=== PATIENT | male | born 1950 | race Two or more races ===

== ENCOUNTER 2017-04-08 08:02 | Day surgery (SDC) | payer OTHER ==
[2017-04-05 15:54] LABS: Basophils # (auto) 0.1 uL; Basophils % (auto) 0.8 % (0.0-2.0); Eosinophils # (auto) 0.4 uL; Eosinophils % (auto) 3.9 % (0.0-7.0); Hematocrit 46.7 % (41.0-53.0); Hemoglobin 15.8 g/dL (13.5-17.5); Lymphocytes # (auto) 2.6 uL; Lymphocytes % (auto) 29.2 % (10.0-50.0); Mean Corpuscular Hemoglobin 30.9 pg (28.0-32.0); Mean Corpuscular Hgb Conc. 33.8 g/dL (32.0-36.0); Mean Corpuscular Volume 91.3 fL (80.0-100.0); Mean Platelet Volume 9.6 fL (7.4-10.4); Monocytes # (auto) 0.7 uL; Neutrophils # (auto) 5.2 uL; Neutrophils % (auto) 58.1 % (37.0-80.0); Platelet Count (auto) 250 10^3/uL (140-450); Red Cell Distribution Width 13.3 % (11.6-16.0); White Blood Cell 8.9 10^3/uL (4.4-10.8)
[2017-04-05 16:15] LABS: INR 1.05 (0.9-1.15); Partial Thromboplastin Time 31.6 sec (22.64-33.71); Prothrombin Time 11.4 sec (9.37-12.3)
[~2017-04-08] VITALS: Ht 167.6 cm; Wt 88.0 kg
[~2017-04-08 08:02] MED LIST: ALPR1TAB2 PO; ASPI81TA27 PO; CITA20TA3 PO; DONE10TA37 PO; GLIP-116 PO; IBUP800T24 PO; PANT40TA2 PO; SITA100T7 PO
[2017-04-08] MEDS ORDERED: SODIUM CHLORIDE LOCK 10 ML ONE (08:16)
[2017-04-08] MEDS ORDERED: LIDOCAINE VISCOUS 2% 15ML UD ONE (08:16)
[2017-04-08] MEDS ORDERED: NALOXONE HCL 0.4 MG/ML VIAL ONE (08:16)
[2017-04-08] MEDS ORDERED: FLUMAZENIL 0.1 MG/ML INJ 10ML MDV IV ONE (08:16)
[2017-04-08] MEDS ORDERED: diphenhdrAMINE HCL 50 MG/1 ML VL ONE (08:17)
[2017-04-08] MEDS: MIDAZOLAM HCL 5 MG/ML-1ML VIAL ONE ×2 (08:50→08:54)
[2017-04-08] MEDS: fentaNYL CITRATE 100 MCG/2 ML VL ONE ×2 (08:50→08:54)
[2017-04-08 09:32] VITALS: BP 130/75
== END 2017-04-08 09:42 | disposition home or self-care (01) ==
LOC: GI 08:02
PROVIDERS: ATTEND Internal Medicine Gastroenterology
DX: K29.50 Unspecified chronic gastritis without bleeding (principal); K29.80 Duodenitis without bleeding; J45.909 Unspecified asthma, uncomplicated; E11.9 Type 2 diabetes mellitus without complications; Z90.49 Acquired absence of other specified parts of digestive tract
CPT/HCPCS: 36415; 43239; 82962; 85025; 85610; 85730; 88305; 88313; 88342; J1200; J2250; J3010; J7030

== ENCOUNTER → 2017-05-07 | Outpatient (CLI) | payer OTHER | END | disposition home or self-care (01) | LOC: LAB 10:29 | PROVIDERS: ATTEND Internal Medicine Gastroenterology | DX: Z12.11 Encounter for screening for malignant neoplasm of colon (principal) | CPT/HCPCS: 82270 ==

== ENCOUNTER → 2017-05-31 | Outpatient (CLI) | payer OTHER ==
[2017-05-31 07:42] LABS: Urine Bilirubin Negative (Negative); Urine Blood TRACE /uL (Negative); Urine Color Yellow (Yellow); Urine Glucose TRACE mg/dL (Normal); Urine Ketone Negative (Negative); Urine Mucus FEW (None Seen); Urine Nitrite Negative (Negative); Urine RBC 5 /hpf (0 - 3); Urine Squamous Epithelial Cell FEW /hpf (<5); Urine Urobilinogen Normal (Negative)
[2017-05-31 08:01] LABS: Albumin 3.9 g/dL (3.4-5.0); BUN/Creatinine Ratio 10.4; Bilirubin, Total 0.3 mg/dL (0.2-1.0); Calcium 8.8 mg/dL (8.5-10.1); Potassium 4.1 mmol/L (3.5-5.1)
== END | disposition home or self-care (01) ==
LOC: LAB 07:15
PROVIDERS: ATTEND Nurse Practitioner
DX: E11.21 Type 2 diabetes mellitus with diabetic nephropathy (principal)
CPT/HCPCS: 36415; 80053; 80061; 81001; 82043; 82306; 82607; 83036; 84443

== ENCOUNTER → 2018-05-05 | Outpatient (CLI) | payer OTHER ==
[~2018-05-05] MED LIST changes: -DONE10TA37 PO; +DONE10TA40 PO
[2018-05-05 10:29] LABS: Basophils # (auto) 0.1 uL; Basophils % (auto) 1.4 % (0.0-2.0); Eosinophils # (auto) 0.2 uL; Eosinophils % (auto) 2.6 % (0.0-7.0); Hematocrit 43.8 % (41.0-53.0); Hemoglobin 14.9 g/dL (13.5-17.5); Lymphocytes # (auto) 1.2 uL; Lymphocytes % (auto) 16.9 % (10.0-50.0); Mean Corpuscular Hemoglobin 30.7 pg (28.0-32.0); Mean Corpuscular Volume 90.4 fL (80.0-100.0); Monocytes # (auto) 0.5 uL; Monocytes % (auto) 6.4 % (0.0-12.0); Neutrophils # (auto) 5.2 uL; Neutrophils % (auto) 72.7 % (37.0-80.0); Nucleated Red Blood Cells % 0.1 %; Platelet Count (auto) 178 10^3/uL (140-450); Red Blood Cells 4.85 10^6/uL (4.5-5.90); Red Cell Distribution Width 13.8 % (11.8-14.3); White Blood Cell 7.1 10^3/uL (4.4-10.8)
[2018-05-05 10:34] LABS: Urine Bacteria NONE SEEN /hpf (None Seen); Urine Blood Negative /uL (Negative); Urine Mucus FEW (None Seen); Urine Specific Gravity 1.022 (1.001-1.035); Urine WBC 1 /hpf (0 - 3)
[2018-05-05 10:55] LABS: Albumin 3.9 g/dL (3.4-5.0); BUN/Creatinine Ratio 8.9; Bilirubin, Total 0.5 mg/dL (0.2-1.0); Calcium 8.5 mg/dL (8.5-10.1); Potassium 4.1 mmol/L (3.5-5.1); Total Protein 7.6 g/dL (6.4-8.2)
== END | disposition home or self-care (01) ==
LOC: LAB 10:07
PROVIDERS: ATTEND Nurse Practitioner
DX: E11.21 Type 2 diabetes mellitus with diabetic nephropathy (principal); E78.5 Hyperlipidemia, unspecified; E78.00 Pure hypercholesterolemia, unspecified; F41.9 Anxiety disorder, unspecified
CPT/HCPCS: 36415; 80053; 80061; 81001; 82043; 83036; 85025

== ENCOUNTER → 2018-07-01 | Outpatient (CLI) | payer OTHER | END | disposition home or self-care (01) | LOC: LAB 11:59 | PROVIDERS: ATTEND Internal Medicine Gastroenterology | DX: Z12.11 Encounter for screening for malignant neoplasm of colon (principal); K22.70 Barrett's esophagus without dysplasia; R05 Cough; E78.5 Hyperlipidemia, unspecified; E11.9 Type 2 diabetes mellitus without complications | CPT/HCPCS: 82274 ==

== ENCOUNTER → 2018-12-29 | Outpatient (CLI) | payer OTHER ==
[2018-12-29 11:25] LABS: Basophils # (auto) 0.1 uL; Basophils % (auto) 1.3 % (0.0-2.0); Eosinophils # (auto) 0.3 uL; Eosinophils % (auto) 3.8 % (0.0-7.0); Hematocrit 45.7 % (41.0-53.0); Hemoglobin 15.5 g/dL (13.5-17.5); Lymphocytes # (auto) 1.7 uL; Lymphocytes % (auto) 23.3 % (10.0-50.0); Mean Corpuscular Hemoglobin 30.7 pg (28.0-32.0); Mean Corpuscular Hgb Conc. 33.9 g/dL (32.0-36.0); Mean Corpuscular Volume 90.7 fL (80.0-100.0); Monocytes # (auto) 0.6 uL; Monocytes % (auto) 7.9 % (0.0-12.0); Neutrophils # (auto) 4.6 uL; Neutrophils % (auto) 63.7 % (37.0-80.0); Platelet Count (auto) 214 10^3/uL (140-450); Red Blood Cells 5.04 10^6/uL (4.5-5.90); Red Cell Distribution Width 14.4 % (11.8-14.3); White Blood Cell 7.3 10^3/uL (4.4-10.8)
[2018-12-29 11:41] LABS: Albumin 4.1 g/dL (3.4-5.0); Calcium 8.7 mg/dL (8.5-10.1); Potassium 4.1 mmol/L (3.5-5.1)
[2018-12-29 11:46] LABS: BUN/Creatinine Ratio 12.6; Bilirubin, Total 0.8 mg/dL (0.2-1.0)
[2018-12-29 12:06] LABS: Folate (Folic Acid) 20.89 ng/mL (5.38-24)
[2018-12-29 12:42] LABS: Urine Bacteria NONE SEEN /hpf (None Seen); Urine Blood Negative /uL (Negative); Urine Mucus FEW (None Seen); Urine Specific Gravity 1.024 (1.001-1.035); Urine WBC 1 /hpf (0 - 3)
== END | disposition home or self-care (01) ==
LOC: LAB 10:54
PROVIDERS: ATTEND Nurse Practitioner
DX: E11.29 Type 2 diabetes mellitus with other diabetic kidney complication (principal); E78.5 Hyperlipidemia, unspecified
CPT/HCPCS: 36415; 80053; 80061; 81001; 82043; 82270; 82306; 82607; 82746; 83036; 84443; 85025

== ENCOUNTER → 2019-02-07 | Outpatient (CLI) | payer OTHER | END | disposition home or self-care (01) | LOC: RT 08:23 | PROVIDERS: ATTEND Internal Medicine Pulmonary Disease | DX: J42 Unspecified chronic bronchitis (principal); E11.9 Type 2 diabetes mellitus without complications; E78.5 Hyperlipidemia, unspecified | CPT/HCPCS: 94060 ==

== ENCOUNTER → 2019-04-13 | Outpatient (CLI) | payer OTHER ==
[2019-04-13 13:34] LABS: Cholesterol 141 mg/dL (< 200); HDL Cholesterol 42 mg/dL (40-59); LDL Cholesterol 96 mg/dL (< 100); Triglycerides 171 mg/dL (< 150)
== END | disposition home or self-care (01) ==
LOC: LAB 12:50
PROVIDERS: ATTEND Internal Medicine
DX: E11.9 Type 2 diabetes mellitus without complications (principal); E56.9 Vitamin deficiency, unspecified; E78.5 Hyperlipidemia, unspecified
CPT/HCPCS: 36415; 80061; 82306; 83036; 84153

== ENCOUNTER → 2019-07-13 | Outpatient (CLI) | payer OTHER ==
[~2019-07-13] MED LIST changes: +ASPI-404 PO; -ASPI81TA27 PO; -GLIP-116 PO; +GLIP10TA9 PO
== END | disposition home or self-care (01) ==
LOC: LAB 10:31
PROVIDERS: ATTEND Internal Medicine
DX: E11.9 Type 2 diabetes mellitus without complications (principal)
CPT/HCPCS: 36415; 83036

== ENCOUNTER 2019-07-17 08:00 | Day surgery (SDC) | payer OTHER ==
[2019-07-14 10:19] LABS: Basophils # (auto) 0.2 uL; Basophils % (auto) 2.5 % (0.0-2.0); Eosinophils # (auto) 0.2 uL; Eosinophils % (auto) 3.4 % (0.0-7.0); Hematocrit 45.3 % (41.0-53.0); Hemoglobin 15.4 g/dL (13.5-17.5); Lymphocytes % (auto) 28.6 % (10.0-50.0); Mean Corpuscular Hemoglobin 30.9 pg (28.0-32.0); Mean Corpuscular Hgb Conc. 33.9 g/dL (32.0-36.0); Mean Corpuscular Volume 91.1 fL (80.0-100.0); Monocytes # (auto) 0.6 uL; Neutrophils # (auto) 4.1 uL; Neutrophils % (auto) 57.5 % (37.0-80.0); Platelet Count (auto) 205 10^3/uL (140-450); Red Blood Cells 4.97 10^6/uL (4.5-5.90); Red Cell Distribution Width 13.8 % (11.8-14.3); White Blood Cell 7.1 10^3/uL (4.4-10.8)
[2019-07-14 10:37] LABS: INR 1.01 (0.9-1.15); Partial Thromboplastin Time 30.2 sec (23.64-32.05)
[~2019-07-17] VITALS: Ht 165.1 cm; Wt 81.2 kg
[~2019-07-17 08:00] MED LIST changes: -ALPR1TAB2 PO; -ASPI-404 PO; -CITA20TA3 PO; -DONE10TA40 PO
[2019-07-17] MEDS ORDERED: diphenhdrAMINE HCL 50 MG/1 ML VL ONE (08:28)
[2019-07-17] MEDS ORDERED: SODIUM CHLORIDE LOCK 10 ML ONE (08:28)
[2019-07-17] MEDS ORDERED: FLUMAZENIL 0.1 MG/ML INJ 10ML MDV IV ONE (08:28)
[2019-07-17] MEDS ORDERED: NALOXONE HCL 0.4 MG/ML VIAL ONE (08:28)
[2019-07-17] MEDS: MIDAZOLAM HCL 5 MG/ML-1ML VIAL ONE ×3 (09:20→09:32)
[2019-07-17] MEDS: fentaNYL CITRATE 100 MCG/2 ML VL ONE ×2 (09:20→09:29)
[2019-07-17 10:07] VITALS: BP 115/82
== END 2019-07-17 10:17 | disposition home or self-care (01) ==
LOC: GI 08:00
PROVIDERS: ATTEND Internal Medicine Gastroenterology
DX: K92.1 Melena (principal); K57.30 Diverticulosis of large intestine without perforation or abscess without bleeding; K64.8 Other hemorrhoids; Z98.890 Other specified postprocedural states; Z88.8 Allergy status to other drugs, medicaments and biological substances; Z88.1 Allergy status to other antibiotic agents; Z88.2 Allergy status to sulfonamides; Z86.73 Personal history of transient ischemic attack (TIA), and cerebral infarction without residual deficits; G30.0 Alzheimer's disease with early onset; F02.80 Dementia in other diseases classified elsewhere, unspecified severity, without behavioral disturbance, psychotic disturbance, mood disturbance, and anxiety; Z90.49 Acquired absence of other specified parts of digestive tract
CPT/HCPCS: 36415; 45378; 82962; 85025; 85610; 85730; J1200; J2250; J3010; J7030; 99152

== ENCOUNTER → 2020-07-11 | Outpatient (CLI) | payer OTHER ==
[2020-07-11 11:28] LABS: Albumin 4.2 g/dL (3.4-5.0); Calcium 9.4 mg/dL (8.5-10.1); Potassium 4.3 mmol/L (3.5-5.1)
[2020-07-11 11:31] LABS: BUN/Creatinine Ratio 11.1; Bilirubin, Total 0.7 mg/dL (0.2-1.0); Total Protein 8.2 g/dL (6.4-8.2)
== END | disposition home or self-care (01) ==
LOC: LAB 10:07
PROVIDERS: ATTEND Internal Medicine
DX: E11.9 Type 2 diabetes mellitus without complications (principal)
CPT/HCPCS: 36415; 80053; 82306; 83036

== ENCOUNTER → 2020-10-10 | Outpatient (CLI) | payer OTHER ==
[2020-10-10 11:22] LABS: Cholesterol 208 mg/dL (< 200); HDL Cholesterol 38 mg/dL (40-59); LDL Cholesterol 139 mg/dL (< 100); Triglycerides 244 mg/dL (< 150)
== END | disposition home or self-care (01) ==
LOC: LAB 10:30
PROVIDERS: ATTEND Internal Medicine
DX: Z12.5 Encounter for screening for malignant neoplasm of prostate (principal); E11.9 Type 2 diabetes mellitus without complications; E78.5 Hyperlipidemia, unspecified; Z12.11 Encounter for screening for malignant neoplasm of colon
CPT/HCPCS: 36415; 80061; 82043; 83036; 84153

== ENCOUNTER → 2021-01-09 | Outpatient (CLI) | payer OTHER ==
[~2021-01-09] MED LIST changes: -IBUP800T24 PO; +IBUP800T27 PO
[2021-01-09 13:59] LABS: Albumin 4.1 g/dL (3.4-5.0); Bilirubin, Direct 0.2 mg/dL (0-0.2)
[2021-01-09 14:02] LABS: Bilirubin, Total 0.7 mg/dL (0.2-1.0); Total Protein 8.2 g/dL (6.4-8.2)
== END | disposition home or self-care (01) ==
LOC: LAB 13:22
PROVIDERS: ATTEND Internal Medicine
DX: E11.9 Type 2 diabetes mellitus without complications (principal); E78.5 Hyperlipidemia, unspecified; Z12.11 Encounter for screening for malignant neoplasm of colon
CPT/HCPCS: 36415; 80061; 80076; 83036

== ENCOUNTER → 2021-08-08 | Day surgery (SDC) | payer OTHER ==
[2021-08-01 11:41] LABS: Basophils # (auto) 0.1 10 ^3/uL (0-0.2); Basophils % (auto) 1.9 % (0.0-2.0); Eosinophils # (auto) 0.2 10 ^3/uL (0-0.8); Eosinophils % (auto) 2.5 % (0.0-7.0); Hematocrit 45.9 % (41.0-53.0); Hemoglobin 15.3 g/dL (13.5-17.5); Lymphocytes # (auto) 2.3 10 ^3/uL (0.4-5.4); Lymphocytes % (auto) 30.3 % (10.0-50.0); Mean Corpuscular Hemoglobin 30.6 pg (28.0-32.0); Mean Corpuscular Hgb Conc. 33.4 g/dL (32.0-36.0); Mean Corpuscular Volume 91.7 fL (80.0-100.0); Monocytes # (auto) 0.5 10 ^3/uL (0-1.3); Monocytes % (auto) 7.1 % (0.0-12.0); Neutrophils # (auto) 4.4 10 ^3/uL (1.6-8.6); Neutrophils % (auto) 58.2 % (37.0-80.0); Red Cell Distribution Width 13.3 % (11.8-14.3); White Blood Cell 7.6 10^3/uL (4.4-10.8)
[2021-08-01 13:29] LABS: Potassium 4.3 mmol/L (3.5-5.1)
[2021-08-01 13:34] LABS: Albumin 3.9 g/dL (3.4-5.0); BUN/Creatinine Ratio 10.5; Calcium 9.5 mg/dL (8.5-10.1)
[2021-08-01 13:36] LABS: Bilirubin, Total 0.6 mg/dL (0.2-1.0)
[~2021-08-08] VITALS: Ht 165.1 cm; Wt 80.7 kg
[~2021-08-08] MED LIST changes: +ASPI1TAB20 PO; +CHOLCAP10 PO; +LIDOCAINE VISCOUS 2% 15ML UD ONE; +LISI2.5T47 PO; +ROSU10TA16 PO; +SODIUM CHLORIDE LOCK 10 ML ONE
[2021-08-08] MEDS: diphenhdrAMINE HCL 50 MG/1 ML VL ONE ×2 (12:50→12:54)
[2021-08-08] MEDS: MIDAZOLAM HCL 5 MG/ML-1ML VIAL ONE ×2 (12:50→12:54)
[2021-08-08] MEDS: fentaNYL CITRATE 100 MCG/2 ML VL ONE ×2 (12:50→12:54)
[2021-08-08 13:30] VITALS: BP 132/71
== END | disposition home or self-care (01) ==
LOC: GI 08-06 13:45
PROVIDERS: ATTEND Internal Medicine Gastroenterology
DX: K21.9 Gastro-esophageal reflux disease without esophagitis (principal); K44.9 Diaphragmatic hernia without obstruction or gangrene; K31.89 Other diseases of stomach and duodenum; K29.70 Gastritis, unspecified, without bleeding; I10 Essential (primary) hypertension; E78.5 Hyperlipidemia, unspecified; Z20.822 Contact with and (suspected) exposure to COVID-19; Z68.31 Body mass index [BMI] 31.0-31.9, adult
CPT/HCPCS: 36415; 43239; 80053; 85025; J1200; J2250; J3010; J7030; U0003

== ENCOUNTER → 2021-10-10 | Outpatient (CLI) | payer OTHER ==
[~2021-10-10] MED LIST changes: -LIDOCAINE VISCOUS 2% 15ML UD ONE; -SODIUM CHLORIDE LOCK 10 ML ONE
[2021-10-10 11:16] LABS: Cholesterol 105 mg/dL (< 200); HDL Cholesterol 38 mg/dL (40-59); LDL Cholesterol 52 mg/dL (< 100); Triglycerides 112 mg/dL (< 150)
== END | disposition home or self-care (01) ==
LOC: LAB 10:08
PROVIDERS: ATTEND Internal Medicine
DX: E78.5 Hyperlipidemia, unspecified (principal)
CPT/HCPCS: 36415; 80061

== ENCOUNTER → 2022-01-22 | Outpatient (CLI) | payer OTHER ==
[2022-01-22 12:33] LABS: Albumin 3.8 g/dL (3.4-5.0); Potassium 4.2 mmol/L (3.5-5.1)
[2022-01-22 12:39] LABS: BUN/Creatinine Ratio 14.6; Bilirubin, Total 0.4 mg/dL (0.2-1.0); Calcium 9.1 mg/dL (8.5-10.1); Total Protein 7.3 g/dL (6.4-8.2)
== END | disposition home or self-care (01) ==
LOC: LAB 11:27
PROVIDERS: ATTEND Internal Medicine
DX: E11.9 Type 2 diabetes mellitus without complications (principal); I10 Essential (primary) hypertension; E78.5 Hyperlipidemia, unspecified
CPT/HCPCS: 36415; 80053; 80061; 82043; 82306; 83036; 84153

== ENCOUNTER → 2022-04-27 | Outpatient (CLI) | payer OTHER ==
[2022-04-27 13:43] LABS: Cholesterol 90 mg/dL (< 200); HDL Cholesterol 41 mg/dL (40-59); LDL Cholesterol 41 mg/dL (< 100); Triglycerides 93 mg/dL (< 150)
== END | disposition home or self-care (01) ==
LOC: LAB 12:52
PROVIDERS: ATTEND Internal Medicine
DX: Z00.00 Encounter for general adult medical examination without abnormal findings (principal); E78.5 Hyperlipidemia, unspecified; E11.9 Type 2 diabetes mellitus without complications; I10 Essential (primary) hypertension
CPT/HCPCS: 36415; 80061; 82306; 83036; 84443

== ENCOUNTER → 2022-07-27 | Outpatient (CLI) | payer OTHER ==
[2022-07-27 15:03] LABS: Cholesterol 85 mg/dL (< 200)
[2022-07-27 15:05] LABS: HDL Cholesterol 46 mg/dL (40-59); LDL Cholesterol 39 mg/dL (< 100); Triglycerides 78 mg/dL (< 150)
== END | disposition home or self-care (01) ==
LOC: LAB 14:11
PROVIDERS: ATTEND Internal Medicine
DX: Z12.11 Encounter for screening for malignant neoplasm of colon (principal); E11.9 Type 2 diabetes mellitus without complications; E78.5 Hyperlipidemia, unspecified
CPT/HCPCS: 36415; 80061; 83036; 84443

== ENCOUNTER → 2022-09-14 | Outpatient (CLI) | payer OTHER | END | disposition home or self-care (01) | LOC: LAB 13:15 | PROVIDERS: ATTEND Internal Medicine | DX: Z12.11 Encounter for screening for malignant neoplasm of colon (principal); E78.5 Hyperlipidemia, unspecified; E11.9 Type 2 diabetes mellitus without complications | CPT/HCPCS: 82270 ==

== ENCOUNTER → 2023-02-05 | Outpatient (CLI) | payer OTHER ==
[2023-02-05 13:54] LABS: Basophils # (auto) 0.1 10 ^3/uL (0-0.2); Basophils % (auto) 1.7 % (0.0-2.0); Eosinophils # (auto) 0.1 10 ^3/uL (0-0.8); Eosinophils % (auto) 1.2 % (0.0-7.0); Hematocrit 42.4 % (41.0-53.0); Hemoglobin 14.5 g/dL (13.5-17.5); Lymphocytes # (auto) 1.8 10 ^3/uL (0.4-5.4); Mean Corpuscular Hemoglobin 30.7 pg (28.0-32.0); Mean Corpuscular Hgb Conc. 34.2 g/dL (32.0-36.0); Mean Corpuscular Volume 89.7 fL (80.0-100.0); Monocytes # (auto) 0.5 10 ^3/uL (0-1.3); Monocytes % (auto) 7.2 % (0.0-12.0); Neutrophils # (auto) 4.6 10 ^3/uL (1.6-8.6); Neutrophils % (auto) 64.9 % (37.0-80.0); Nucleated Red Blood Cells % 0.1 %; Red Blood Cells 4.72 10^6/uL (4.5-5.90); White Blood Cell 7.1 10^3/uL (4.4-10.8)
[2023-02-05 15:00] LABS: Albumin 4.4 g/dL (3.4-5.0); Calcium 9.7 mg/dL (8.5-10.1); Potassium 4.7 mmol/L (3.5-5.1)
[2023-02-05 15:05] LABS: BUN/Creatinine Ratio 16.8 (10.0-20.0); Total Protein 7.8 g/dL (6.4-8.2)
== END | disposition home or self-care (01) ==
LOC: LAB 13:33
PROVIDERS: ATTEND Internal Medicine
DX: E11.9 Type 2 diabetes mellitus without complications (principal); E55.9 Vitamin D deficiency, unspecified; R05.9 Cough, unspecified; E78.5 Hyperlipidemia, unspecified
CPT/HCPCS: 36415; 80053; 82043; 82306; 83036; 84153; 84443; 85025

== ENCOUNTER → 2023-06-14 | Outpatient (CLI) | payer OTHER ==
[~2023-06-14] MED LIST changes: +IBUP-1456 PO; -IBUP800T27 PO
[2023-06-14 14:17] LABS: Bilirubin, Direct 0.1 mg/dL (0-0.2)
[2023-06-14 14:20] LABS: Bilirubin, Total 0.5 mg/dL (0.2-1.0); Total Protein 7.5 g/dL (6.4-8.2)
== END | disposition home or self-care (01) ==
LOC: LAB 11:03
PROVIDERS: ATTEND Podiatrist
DX: B35.1 Tinea unguium (principal)
CPT/HCPCS: 36415; 80076

== ENCOUNTER → 2023-08-24 | Outpatient (CLI) | payer OTHER ==
[2023-08-24 15:34] LABS: Chloride 109 mmol/L (98-107); Potassium 4.2 mmol/L (3.5-5.1); Sodium 139 mmol/L (136-145)
[2023-08-24 15:35] LABS: Anion Gap 8 (5-15); Calcium 9.9 mg/dL (8.5-10.1); Carbon Dioxide 22 mmol/L (20-30)
[2023-08-24 15:40] LABS: BUN/Creatinine Ratio 12.7 (10.0-20.0); Blood Urea Nitrogen 15 mg/dL (9-23); Glucose 155 mg/dL (74-106)
[2023-08-24 16:08] LABS: Creatinine, Urine 115.96 mg/dL (30.0-125.0)
== END | disposition home or self-care (01) ==
LOC: LAB 15:02
PROVIDERS: ATTEND Internal Medicine
DX: E11.9 Type 2 diabetes mellitus without complications (principal)
CPT/HCPCS: 36415; 80048; 82043; 82570

== ENCOUNTER → 2023-12-01 | Outpatient (CLI) | payer OTHER ==
[2023-12-01 13:38] LABS: Basophils # (auto) 0.1 10 ^3/uL (0-0.2); Basophils % (auto) 1.5 % (0.0-2.0); Eosinophils # (auto) 0.3 10 ^3/uL (0-0.8); Eosinophils % (auto) 4.3 % (0.0-7.0); Hematocrit 42.7 % (41.0-53.0); Hemoglobin 14.1 g/dL (13.5-17.5); Lymphocytes # (auto) 2.3 10 ^3/uL (0.4-5.4); Lymphocytes % (auto) 31.2 % (10.0-50.0); Mean Corpuscular Hemoglobin 30.3 pg (28.0-32.0); Mean Corpuscular Hgb Conc. 33.1 g/dL (32.0-36.0); Mean Corpuscular Volume 91.5 fL (80.0-100.0); Monocytes # (auto) 0.6 10 ^3/uL (0-1.3); Monocytes % (auto) 7.8 % (0.0-12.0); Neutrophils % (auto) 55.2 % (37.0-80.0); Red Blood Cells 4.67 10^6/uL (4.5-5.90); Red Cell Distribution Width 13.5 % (11.8-14.3); White Blood Cell 7.3 10^3/uL (4.4-10.8)
[2023-12-01 14:24] LABS: Folate (Folic Acid) 17.63 ng/mL (>5.38)
== END | disposition home or self-care (01) ==
LOC: LAB 13:21
PROVIDERS: ATTEND Internal Medicine
DX: E11.22 Type 2 diabetes mellitus with diabetic chronic kidney disease (principal); N18.2 Chronic kidney disease, stage 2 (mild); E78.5 Hyperlipidemia, unspecified
CPT/HCPCS: 36415; 82607; 82746; 84443; 85025

== ENCOUNTER → 2024-03-02 | Outpatient (CLI) | payer OTHER | END | disposition home or self-care (01) | LOC: LAB 09:37 | PROVIDERS: ATTEND Internal Medicine | DX: Z12.11 Encounter for screening for malignant neoplasm of colon (principal); E11.9 Type 2 diabetes mellitus without complications | CPT/HCPCS: 36415; 83036 ==

== ENCOUNTER → 2024-06-19 | Outpatient (CLI) | payer OTHER ==
[2024-06-19 10:21] LABS: Alanine Aminotransferase 31 U/L (7-40); Albumin 4.6 g/dL (3.2-4.8); Alkaline Phosphatase 84 U/L (46-116); Anion Gap 3 (5-15); Aspartate Aminotransferase 16 U/L (13-40); Blood Urea Nitrogen 12 mg/dL (9-23); Calcium 10.3 mg/dL (8.7-10.4); Carbon Dioxide 28 mmol/L (20-30); Chloride 108 mmol/L (98-107); Glucose 102 mg/dL (74-106); LDL Cholesterol 145 mg/dL (< 100); Potassium 4.7 mmol/L (3.5-5.1); Sodium 139 mmol/L (136-145); Triglycerides 87 mg/dL (< 150)
[2024-06-19 10:22] LABS: Bilirubin, Total 0.7 mg/dL (0.2-1.0); Cholesterol 202 mg/dL (< 200); HDL Cholesterol 49 mg/dL (40-59); Total Protein 7.3 g/dL (5.7-8.2)
[2024-06-19 10:31] LABS: Creatinine, Urine 159.67 mg/dL (30.0-125.0)
== END | disposition home or self-care (01) ==
LOC: LAB 09:06
PROVIDERS: ATTEND Internal Medicine
DX: Z12.11 Encounter for screening for malignant neoplasm of colon (principal); E11.9 Type 2 diabetes mellitus without complications; E78.5 Hyperlipidemia, unspecified
CPT/HCPCS: 36415; 80053; 80061; 82043; 82270; 82570; 83036

== ENCOUNTER → 2024-08-23 | Outpatient (CLI) | payer OTHER ==
[2024-08-23 11:06] LABS: Albumin 4.3 g/dL (3.2-4.8); Bilirubin, Direct 0.2 mg/dL (<0.3); Bilirubin, Total 0.6 mg/dL (0.2-1.0); Total Protein 6.8 g/dL (5.7-8.2)
== END | disposition home or self-care (01) ==
LOC: LAB 10:12
PROVIDERS: ATTEND Podiatrist
DX: B35.1 Tinea unguium (principal)
CPT/HCPCS: 36415; 80076

== ENCOUNTER → 2024-09-15 | Outpatient (CLI) | payer MEDICAID ==
[2024-09-15 14:06] LABS: LDL Cholesterol 43 mg/dL (< 100); Triglycerides 118 mg/dL (< 150)
[2024-09-15 14:07] LABS: Cholesterol 107 mg/dL (< 200); HDL Cholesterol 43 mg/dL (40-59)
== END | disposition home or self-care (01) ==
LOC: LAB 13:14
PROVIDERS: ATTEND Internal Medicine
DX: E11.9 Type 2 diabetes mellitus without complications (principal); E78.5 Hyperlipidemia, unspecified
CPT/HCPCS: 36415; 80061; 83036; 84443

== ENCOUNTER → 2025-01-11 | Outpatient (CLI) | payer MEDICAID ==
[2025-01-11 12:04] LABS: Urine Bacteria None Seen /hpf (None Seen)
[2025-01-11 12:13] LABS: Basophils # (auto) 0.2 10 ^3/uL (0-0.2); Basophils % (auto) 2.7 % (0.0-2.0); Eosinophils # (auto) 0.2 10 ^3/uL (0-0.8); Eosinophils % (auto) 2.9 % (0.0-7.0); Hematocrit 41.1 % (41.0-53.0); Hemoglobin 13.8 g/dL (13.5-17.5); Lymphocytes # (auto) 2.2 10 ^3/uL (0.4-5.4); Lymphocytes % (auto) 30.6 % (10.0-50.0); Mean Corpuscular Hemoglobin 31.9 pg (28.0-32.0); Mean Corpuscular Hgb Conc. 33.7 g/dL (32.0-36.0); Mean Corpuscular Volume 94.6 fL (80.0-100.0); Monocytes # (auto) 0.5 10 ^3/uL (0-1.3); Monocytes % (auto) 7.8 % (0.0-12.0); Neutrophils # (auto) 3.9 10 ^3/uL (1.6-8.6); Platelet Count (auto) 268 10^3/uL (140-450); Red Blood Cells 4.34 10^6/uL (4.5-5.90); White Blood Cell 7.1 10^3/uL (4.4-10.8)
[2025-01-11 12:30] LABS: Urine Blood Negative /uL (Negative); Urine Clarity Clear (Clear); Urine Color Light-Yellow (Yellow); Urine Protein, UAD Negative (Negative); Urine Specific Gravity 1.015 (1.001-1.035); Urine Squamous Epithelial Cell FEW /hpf (<5); Urine Urobilinogen Normal (Negative); Urine WBC 1 /HPF (0-3)
== END | disposition home or self-care (01) ==
LOC: LAB 11:50
PROVIDERS: ATTEND Internal Medicine
DX: E11.9 Type 2 diabetes mellitus without complications (principal); M54.50 Low back pain, unspecified
CPT/HCPCS: 36415; 81001; 84153; 85025

== ENCOUNTER → 2025-05-18 | Outpatient (CLI) | payer MEDICAID ==
[2025-05-18 14:30] LABS: Microalb/Creat Ratio, Urine 12.0
== END | disposition home or self-care (01) ==
LOC: LAB 13:20
PROVIDERS: ATTEND Internal Medicine
DX: E11.9 Type 2 diabetes mellitus without complications (principal)
CPT/HCPCS: 36415; 82043; 82570; 83036

== ENCOUNTER → 2025-06-19 | Outpatient (CLI) | payer MEDICAID, OTHER ==
[~2025-06-19] VITALS: Ht 165.1 cm; Wt 74.8 kg
[2025-06-19] MEDS: REGADENOSON 0.4 MG/5 ML SYRG IV ONE ×2 (11:00→11:05)
--- NOTE | 2025-06-19 15:37 | DVHSR ---
APPROVED REPORT Exam: Nuclear Stress Test Indication: Pre-Operative CV evaluation Stress Tech: Esther Prather Ht: 5 ft 5 in Wt: 165 lbs BSA: 1.82 m2 HR: 40 bpm BP: 174/65 mmHg BMI: 27.45 Rhythm: Bradycardia with notched p wave Medical History Medical History: Asthma, DM2, HTN, CVA, BPH Allergies: Doxycycline, Metformin, Sulfa ABX, Atorvastatin Stress Test Details Stress Test: Pharmacologic stress testing performed using 0.4 mg of regadenoson per 5 mL given IV ov er 10 seconds. Reason for pharmacologic stress test: Caridac Clearance. HR Resting HR: 40 bpmMax Heart Rate (APMHR): 146.303652 bpm Max HR Achieved: 63 bpmTarget HR (85% APMHR): 124.179977 bpm % of APMHR: 43.15 Recovery HR: 54 bpm BP Resting BP: 174/65 mmHg Recovery BP: 118/61 mmHg ECG Resting ECG: Sinus Bradycardia Clinical Reason for Termination: Completed protocol Stress ECG Conclusion lvef 51% no severe ischemia noted NM EXAM: Myocardial Perfusion REST/STRESS Imaging Protocol: Rest Tc-99m/Stress Tc-99m 1 day Resting Data Rest SPECT myocardial perfusion imaging was performed in supine position 60 minutes following the int ravenous injection of 11.4 mCi of Tc-99m Sestamibi. Time of rest injection: 09:30 Date: 06/19/2025 Time of rest imagin:30 Date: 06/19/2025 Administration Route: IV Administration Site: Left AC Pharmacologic Stress Pharmacologic stress test was performed by injecting Regadenoson 0.4 mg IV push followed by the intra venous injection of 32.4 mCi of Tc-99m Sestamibi. Time of stress injection: 11:00 Date: 06/19/2025 Time of stress imagin:00 Date: 06/19/2025 Administration Route: IV Administration Site: Left AC Gated Stress SPECT was performed 60 minutes after stress injection. The images were gated to evaluate regional wall motion and calculate left ventricular ejection fracti on. Stress only was performed in the Supine position. Nuclear Conclusion Nuclear Findings: negative for ischemia lvef 51% no severe ischemia noted
== END | disposition home or self-care (01) ==
LOC: XYW 08:59
PROVIDERS: ATTEND Internal Medicine
DX: Z01.810 Encounter for preprocedural cardiovascular examination (principal); I10 Essential (primary) hypertension; J45.909 Unspecified asthma, uncomplicated; E11.9 Type 2 diabetes mellitus without complications; N40.0 Benign prostatic hyperplasia without lower urinary tract symptoms; Z86.73 Personal history of transient ischemic attack (TIA), and cerebral infarction without residual deficits; Z88.1 Allergy status to other antibiotic agents; Z88.2 Allergy status to sulfonamides
CPT/HCPCS: 78452; 93017; A9500; J2785

== ENCOUNTER → 2025-08-20 | Outpatient (CLI) | payer MEDICAID | END | disposition home or self-care (01) | LOC: LAB 10:30 | PROVIDERS: ATTEND Internal Medicine | DX: N40.1 Benign prostatic hyperplasia with lower urinary tract symptoms (principal); E11.9 Type 2 diabetes mellitus without complications; R41.81 Age-related cognitive decline | CPT/HCPCS: 36415; 82607; 82746; 84443; 86780 ==